=== PATIENT | female | born 1955 | race African-American/Black ===

== ENCOUNTER 2019-07-16 17:00 | Emergency (ER) | payer OTHER ==
[~2019-07-16] VITALS: Ht 154.9 cm; Wt 50.0 kg
[2019-07-16] MEDS ORDERED: [UNRECOGNIZED DRUG - OTHER] (17:16)
[2019-07-16] MEDS ORDERED: SODIUM CHLORIDE 0.9% 1,000 ML IV ONE (18:00)
[2019-07-16] MEDS ORDERED: KETOROLAC 15MG/ML VIAL IV ONE (18:00)
[2019-07-16] MEDS ORDERED: SUMATRIPTAN SUCCINATE 6MG/0.5ML VIAL SUBCUT ONE (19:00)
[2019-07-16 20:55] VITALS: BP 140/70
== END 2019-07-16 20:56 | disposition home or self-care (01) ==
LOC: ER 17:00
DX: G43.909 Migraine, unspecified, not intractable, without status migrainosus (principal); Z88.0 Allergy status to penicillin; Z88.1 Allergy status to other antibiotic agents
CPT/HCPCS: 96372; 96374; 99284; J1885; J3030; J7030